=== PATIENT | female | born 1985 | race Hispanic/Latino ===

== ENCOUNTER 2017-06-07 19:57 | Emergency (ER) | payer SELFPAY ==
--- NOTE | 2017-06-07 20:47 | Emergency Department Report ---
ED Altered Mental Status HPI - General Chief Complaint: Altered Mental Status Stated Complaint: AMS Time Seen by Provider: 06/07/17 20:38 Source: police, EMS Mode of arrival: Stretcher Limitations: Altered Mental Status - History of Present Illness Initial Comments: Patient is 32 years old female unknown past medical history, brought by EMS in police department after patient was found on the top A van screaming, as it look like an acute psychotic breakdown. unable to obtain more history at this time due to patient mental status. She was given Haldol and Ativan by EMS. Patient is sleeping comfortably in the ER now, easily arousable. MD Complaint: altered mental status, intoxication - Related Data Allergies Allergy/AdvReac Type Severity Reaction Status Date / Time No Known Allergies Allergy Unverified 06/07/17 20:36 ED Review of Systems ROS: Stated complaint: AMS Other details as noted in HPI Comment: Unobtainable due to pts medical conditions ED Past Medical Hx - Past Medical History Previous Medical History?: No - Surgical History Past Surgical History?: No - Social History Smoking Status: Unknown if ever smoked Substance Use Type: Cocaine ED Physical Exam - General Limitations: Altered Mental Status General appearance: in no apparent distress, obtunded - Head Head exam: Present: atraumatic, normocephalic, normal inspection - Eye Eye exam: Present: other (her pills are 5 mm dilated and reactive to light) Pupils: Present: normal accommodation - ENT ENT exam: Present: normal exam, normal orophraynx, mucous membranes moist - Neck Neck exam: Present: normal inspection, full ROM. Absent: tenderness, meningismus, lymphadenopathy, thyromegaly - Respiratory Respiratory exam: Present: normal lung sounds bilaterally. Absent: wheezes, rales, rhonchi, stridor, chest wall tenderness, accessory muscle use, decreased breath sounds, prolonged expiratory - Cardiovascular Cardiovascular Exam: Present: tachycardia - GI/Abdominal GI/Abdominal exam: Present: soft, normal bowel sounds. Absent: distended, tenderness, guarding, rebound, rigid, diminished bowel sounds, organomegaly, mass, bruit, pulsatile mass, hernia - Extremities Exam Extremities exam: Present: normal inspection, full ROM, normal capillary refill. Absent: tenderness, pedal edema, joint swelling, calf tenderness - Back Exam Back exam: Present: normal inspection, full ROM. Absent: tenderness, CVA tenderness (R), CVA tenderness (L), muscle spasm, paraspinal tenderness, vertebral tenderness, rash noted - Neurological Exam Neurological exam: Present: altered - Psychiatric Psychiatric exam: Present: agitated - Skin Skin exam: Present: warm, intact, normal color ED Course Vital Signs 06/07/17 06/07/17 06/07/17 20:29 22:00 22:31 Temperature 98.9 F Pulse Rate 106 H 84 78 Respiratory 18 17 16 Rate Blood Pressure 117/71 112/68 112/68 O2 Sat by Pulse 99 94 97 Oximetry 06/07/17 06/07/17 06/08/17 23:00 23:31 00:00 Temperature Pulse Rate 77 76 94 H Respiratory 17 14 15 Rate Blood Pressure 102/57 102/57 119/78 O2 Sat by Pulse 97 99 100 Oximetry 06/08/17 06/08/17 06/08/17 00:11 01:00 02:00 Temperature Pulse Rate 90 93 H 92 H Respiratory 21 21 13 Rate Blood Pressure 119/78 128/80 113/68 O2 Sat by Pulse 99 100 99 Oximetry 06/08/17 03:00 Temperature Pulse Rate 66 Respiratory 14 Rate Blood Pressure 114/61 O2 Sat by Pulse 98 Oximetry - Reevaluation(s) Reevaluation #1: 06/07/17 23:43 Patient is alert awake, oriented in time and person but not place. Patient no her friend that came with from [place], she told me that she is traveling to [place]. They denied any history of psychiatric problem. I will observe her and reassess again. Reevaluation #2: 06/08/17 05:43 Patient is awake, alert 3. She stated that she is back to her normal. She denied any history of psychiatric problems. She admitted using meth and cocaine last night. Patient denied suicidal or homicidal ideation. No auditory or visual hallucination. - Lab Data Result diagrams: 06/07/17 20:54 06/07/17 20:54 Lab Results 06/07/17 06/07/17 06/07/17 Range/Units 20:54 20:54 20:54 WBC 10.7 (4.5-11.0) K/mm3 RBC 4.42 (3.65-5.03) M/mm3 Hgb 14.0 (10.1-14.3) gm/dl Hct 41.2 (30.3-42.9) % MCV 93 (79-97) fl MCH 32 (28-32) pg MCHC 34 (30-34) % RDW 14.0 (13.2-15.2) % Plt Count 141 (140-440) K/mm3 Lymph % (Auto) 7.3 L (13.4-35.0) % [place] % (Auto) 5.4 (0.0-7.3) % Eos % (Auto) 0.1 (0.0-4.3) % Baso % (Auto) 0.2 (0.0-1.8) % Lymph # 0.8 L (1.2-5.4) K/mm3 [place] # 0.6 (0.0-0.8) K/mm3 Eos # 0.0 (0.0-0.4) K/mm3 Baso # 0.0 (0.0-0.1) K/mm3 Seg Neutrophils % 87.0 H (40.0-70.0) % Seg Neutrophils # 9.3 H (1.8-7.7) K/mm3 Sodium 132 L (137-145) mmol/L Potassium 3.5 L (3.6-5.0) mmol/L Chloride 93.6 L (98-107) mmol/L Carbon Dioxide 24 (22-30) mmol/L Anion Gap 18 mmol/L BUN 13 (7-17) mg/dL Creatinine 0.8 (0.7-1.2) mg/dL Estimated GFR > 60 ml/min BUN/Creatinine Ratio 16 % Glucose 80 (65-100) mg/dL Lactic Acid 1.10 (0.7-2.0) mmol/L Calcium 9.5 (8.4-10.2) mg/dL Magnesium 2.30 (1.7-2.3) mg/dL Total Bilirubin 0.60 (0.1-1.2) mg/dL AST 32 (5-40) units/L ALT 15 (7-56) units/L Alkaline Phosphatase 55 (35-129) units/L Total Protein 7.1 (6.3-8.2) g/dL Albumin 4.5 (3.9-5) g/dL Albumin/Globulin Ratio 1.7 % TSH (0.270-4.200) mlU/mL HCG, Qual (Negative) Salicylates (2.8-20.0) mg/dL Urine Opiates Screen Urine Methadone Screen Acetaminophen (10.0-30.0) ug/mL Ur Barbiturates Screen Ur Phencyclidine Scrn Ur Amphetamines Screen U Benzodiazepines Scrn Urine Cocaine Screen U Marijuana (THC) Screen Drugs of Abuse Note Plasma/Serum Alcohol (0-0.07) gm% 06/07/17 06/07/17 06/07/17 Range/Units 20:54 20:54 20:54 WBC (4.5-11.0) K/mm3 RBC (3.65-5.03) M/mm3 Hgb (10.1-14.3) gm/dl Hct (30.3-42.9) % MCV (79-97) fl MCH (28-32) pg MCHC (30-34) % RDW (13.2-15.2) % Plt Count (140-440) K/mm3 Lymph % (Auto) (13.4-35.0) % [place] % (Auto) (0.0-7.3) % Eos % (Auto) (0.0-4.3) % Baso % (Auto) (0.0-1.8) % Lymph # (1.2-5.4) K/mm3 [place] # (0.0-0.8) K/mm3 Eos # (0.0-0.4) K/mm3 Baso # (0.0-0.1) K/mm3 Seg Neutrophils % (40.0-70.0) % Seg Neutrophils # (1.8-7.7) K/mm3 Sodium (137-145) mmol/L Potassium (3.6-5.0) mmol/L Chloride (98-107) mmol/L Carbon Dioxide (22-30) mmol/L Anion Gap mmol/L BUN (7-17) mg/dL Creatinine (0.7-1.2) mg/dL Estimated GFR ml/min BUN/Creatinine Ratio % Glucose (65-100) mg/dL Lactic Acid (0.7-2.0) mmol/L Calcium (8.4-10.2) mg/dL Magnesium (1.7-2.3) mg/dL Total Bilirubin (0.1-1.2) mg/dL AST (5-40) units/L ALT (7-56) units/L Alkaline Phosphatase (35-129) units/L Total Protein (6.3-8.2) g/dL Albumin (3.9-5) g/dL Albumin/Globulin Ratio % TSH 0.677 (0.270-4.200) mlU/mL HCG, Qual (Negative) Salicylates < 0.3 L (2.8-20.0) mg/dL Urine Opiates Screen Urine Methadone Screen Acetaminophen < 15.0 (10.0-30.0) ug/mL Ur Barbiturates Screen Ur Phencyclidine Scrn Ur Amphetamines Screen U Benzodiazepines Scrn Urine Cocaine Screen U Marijuana (THC) Screen Drugs of Abuse Note Plasma/Serum Alcohol (0-0.07) gm% 06/07/17 06/07/17 06/07/17 Range/Units 20:54 20:54 22:05 WBC (4.5-11.0) K/mm3 RBC (3.65-5.03) M/mm3 Hgb (10.1-14.3) gm/dl Hct (30.3-42.9) % MCV (79-97) fl MCH (28-32) pg MCHC (30-34) % RDW (13.2-15.2) % Plt Count (140-440) K/mm3 Lymph % (Auto) (13.4-35.0) % [place] % (Auto) (0.0-7.3) % Eos % (Auto) (0.0-4.3) % Baso % (Auto) (0.0-1.8) % Lymph # (1.2-5.4) K/mm3 [place] # (0.0-0.8) K/mm3 Eos # (0.0-0.4) K/mm3 Baso # (0.0-0.1) K/mm3 Seg Neutrophils % (40.0-70.0) % Seg Neutrophils # (1.8-7.7) K/mm3 Sodium (137-145) mmol/L Potassium (3.6-5.0) mmol/L Chloride (98-107) mmol/L Carbon Dioxide (22-30) mmol/L Anion Gap mmol/L BUN (7-17) mg/dL Creatinine (0.7-1.2) mg/dL Estimated GFR ml/min BUN/Creatinine Ratio % Glucose (65-100) mg/dL Lactic Acid (0.7-2.0) mmol/L Calcium (8.4-10.2) mg/dL Magnesium (1.7-2.3) mg/dL Total Bilirubin (0.1-1.2) mg/dL AST (5-40) units/L ALT (7-56) units/L Alkaline Phosphatase (35-129) units/L Total Protein (6.3-8.2) g/dL Albumin (3.9-5) g/dL Albumin/Globulin Ratio % TSH (0.270-4.200) mlU/mL HCG, Qual Negative (Negative) Salicylates (2.8-20.0) mg/dL Urine Opiates Screen Presumptive negative Urine Methadone Screen Presumptive negative Acetaminophen (10.0-30.0) ug/mL Ur Barbiturates Screen Presumptive negative Ur Phencyclidine Scrn Presumptive negative Ur Amphetamines Screen Presumptive positive U Benzodiazepines Scrn Presumptive negative Urine Cocaine Screen Presumptive positive U Marijuana (THC) Screen Presumptive positive Drugs of Abuse Note Disclamer Plasma/Serum Alcohol < 0.01 (0-0.07) gm% 06/07/17 Range/Units 23:22 WBC (4.5-11.0) K/mm3 RBC (3.65-5.03) M/mm3 Hgb (10.1-14.3) gm/dl Hct (30.3-42.9) % MCV (79-97) fl MCH (28-32) pg MCHC (30-34) % RDW (13.2-15.2) % Plt Count (140-440) K/mm3 Lymph % (Auto) (13.4-35.0) % [place] % (Auto) (0.0-7.3) % Eos % (Auto) (0.0-4.3) % Baso % (Auto) (0.0-1.8) % Lymph # (1.2-5.4) K/mm3 [place] # (0.0-0.8) K/mm3 Eos # (0.0-0.4) K/mm3 Baso # (0.0-0.1) K/mm3 Seg Neutrophils % (40.0-70.0) % Seg Neutrophils # (1.8-7.7) K/mm3 Sodium (137-145) mmol/L Potassium (3.6-5.0) mmol/L Chloride (98-107) mmol/L Carbon Dioxide (22-30) mmol/L Anion Gap mmol/L BUN (7-17) mg/dL Creatinine (0.7-1.2) mg/dL Estimated GFR ml/min BUN/Creatinine Ratio % Glucose (65-100) mg/dL Lactic Acid 0.90 (0.7-2.0) mmol/L Calcium (8.4-10.2) mg/dL Magnesium (1.7-2.3) mg/dL Total Bilirubin (0.1-1.2) mg/dL AST (5-40) units/L ALT (7-56) units/L Alkaline Phosphatase (35-129) units/L Total Protein (6.3-8.2) g/dL Albumin (3.9-5) g/dL Albumin/Globulin Ratio % TSH (0.270-4.200) mlU/mL HCG, Qual (Negative) Salicylates (2.8-20.0) mg/dL Urine Opiates Screen Urine Methadone Screen Acetaminophen (10.0-30.0) ug/mL Ur Barbiturates Screen Ur Phencyclidine Scrn Ur Amphetamines Screen U Benzodiazepines Scrn Urine Cocaine Screen U Marijuana (THC) Screen Drugs of Abuse Note Plasma/Serum Alcohol (0-0.07) gm% - Medical Decision Making Patient is back to her baseline. I believe this is deep to intoxication of meth and cocaine. I will discharge patient home with her friend Akila. Critical care attestation.: If time is entered above; I have spent that time in minutes in the direct care of this critically ill patient, excluding procedure time. ED Disposition Clinical Impression: Altered mental status, Substance abuse, Intoxication by drug Disposition: DC-01 TO HOME OR SELFCARE Is pt being admited?: No Condition: Stable Instructions: Polysubstance Abuse (ED), Methamphetamine Abuse (ED), Cannabis Abuse (ED), Altered Mental Status (ED) Referrals: PRIMARY CARE, [Primary Care Provider] - 3-5 Days
[2017-06-07 21:11] LABS: Basophils % (Auto) 0.2 % (0.0-1.8); Eosinophils % (Auto) 0.1 % (0.0-4.3); Hematocrit 41.2 % (30.3-42.9); Mean Corpuscular HGB Conc 34 % (30-34); Mean Corpuscular Hemoglobin 32 pg (28-32); Mean Corpuscular Volume 93 fl (79-97); Platelet Count 141 K/mm3 (140-440); Red Blood Count 4.42 M/mm3 (3.65-5.03); White Blood Count 10.7 K/mm3 (4.5-11.0)
[2017-06-07 21:48] LABS: Alanine Aminotransferase 15 units/L (7-56); Albumin 4.5 g/dL (3.9-5); Albumin/Globulin Ratio 1.7 %; Alkaline Phosphatase 55 units/L (35-129); Anion Gap 18 mmol/L; BUN/Creatinine Ratio 16; Blood Urea Nitrogen 13 mg/dL (7-17); Calcium 9.5 mg/dL (8.4-10.2); Carbon Dioxide 24 mmol/L (22-30); Chloride 93.6 mmol/L (98-107); Glucose 80 mg/dL (65-100); Potassium 3.5 mmol/L (3.6-5.0); Sodium 132 mmol/L (137-145); Total Protein 7.1 g/dL (6.3-8.2)
[2017-06-07 22:10] LABS: Urine Drugs of Abuse Note Disclamer
[2017-06-08] MEDS ORDERED: VASELINE LIP THERAPY TP PRN (01:33)
[2017-06-08] MEDS ORDERED: ATIVAN IM PRN (10:50)
[2017-06-08] MEDS ORDERED: HALDOL IM PRN (10:50)
--- NOTE | 2017-06-08 15:03 | Consultation ---
History of Present Illness - Reason for Consult Consult date: 06/08/17 Reason for consult: Mental Health Evaluation Requesting physician: LULU CLARK - Chief Complaint Chief complaint: "Why you asking a lot of questions" - History of Present Psychiatric Illness Patient is 32 years old female unknown past medical history, brought by EMS in police department after patient was found on the top A van screaming. Today patient is calm, but disorganized during the assessment. She did admit recreational drug use (cocaine, meths, and marijuana). She stated smoking a different type of marijuana. She could not confirm or deny that she knew the people she was with prior to being brought to [facility] for bizarre behavior. The patient had to be redirected a couple times during the assessment to keep her on the right topic. When the patient was asked about being fearful of anyone, she would not answer. Per her assigned RN, different people have been calling the hospital and asking about her status. She denies SI/HI's and AVH's. She admit to erratic sleep the last 3 days (can't initiate sleep), but denies a poor appetite. She denies excessive alcohol consumption. This patient has been in the [facility] for 3 weeks from [place]. She denies a mental health dx. Medications and Allergies Allergies Allergy/AdvReac Type Severity Reaction Status Date / Time No Known Allergies Allergy Unverified 06/07/17 20:36 Active Meds: Active Medications Haloperidol Lactate (Haldol) 5 mg IM Q6HR PRN PRN Reason: Agitation Hydrophilic Ointment (Vaseline Lip Therapy) 1 applic TP DIRECT PRN PRN Reason: Dry Lips Last Admin: 06/08/17 01:36 Dose: 1 applic Lorazepam (Ativan) 2 mg IM Q4HR PRN PRN Reason: Agitation Mental Status Exam - Vital signs Last Vital Signs Temp 98.9 F 06/07/17 20:29 Pulse 84 06/08/17 06:00 Resp 16 06/08/17 06:00 BP 117/74 06/08/17 06:00 Pulse Ox 98 06/08/17 06:00 - Exam Narrative exam: MSE: Appearance: calm, cooperative Behavior: regular eye contact Speech: regular rate and tone Mood: "okay" Affect: broad Thought Process: circumstantial Thought Content: denies SI/HI's and AVH's, disorganized Motor Activity: sitting up in bed Cognition: A/Ox3 Insight: variable Judgment: variable Results Result Diagrams: 06/07/17 20:54 06/07/17 20:54 Abnormal lab results 06/07/17 06/07/17 06/07/17 Range/Units 20:54 20:54 20:54 Lymph % (Auto) 7.3 L (13.4-35.0) % Lymph # 0.8 L (1.2-5.4) K/mm3 Seg Neutrophils % 87.0 H (40.0-70.0) % Seg Neutrophils # 9.3 H (1.8-7.7) K/mm3 Sodium 132 L (137-145) mmol/L Potassium 3.5 L (3.6-5.0) mmol/L Chloride 93.6 L (98-107) mmol/L Salicylates < 0.3 L (2.8-20.0) mg/dL All other labs normal. Assessment and Plan Assessment and plan: Impression: Substance Induced Psychosis. Substance Use DO (cocaine, marijuana, and amphetamines). Insomnia. Today patient is calm, but disorganized during the assessment. DDx: R/O Mood DO, R/O Schizophrenia Recommendation/Plan: Continue 1013. Gather more collateral information to determine proper dispo. Different people have been calling the hospital asking about the patient's status (suspicious). [facility] police contacted. Start Remeron 15 mg PO HS for sleep consolidation. Discussed possible suicidality/ medication induced shanel with patient reference Remeron.
[2017-06-08] MEDS ORDERED: REMERON PO ONE (16:00)
[2017-06-09 08:48] VITALS: BP 117/76
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
== END 2017-06-09 18:24 | disposition home or self-care (01) ==
LOC: ED 19:57
DX: T40.5X5A Adverse effect of cocaine, initial encounter (principal); R41.82 Altered mental status, unspecified; Z79.899 Other long term (current) drug therapy; Y92.89 Other specified places as the place of occurrence of the external cause
CPT/HCPCS: 36415; 80053; 80307; 82140; 83735; 84443; 84703; 85025; 93005; 93010; 99285; G0480; 80320